=== PATIENT | male | born 1970 | race Caucasian/White ===

== ENCOUNTER 2022-04-05 09:05 | Outpatient (CLI) | payer BC, SELFPAY | END 2022-04-05 09:06 | disposition home or self-care (01) | LOC: WOUND 09:06 | PROVIDERS: Visit Provider Nurse Practitioner Family | DX: E11.621 Type 2 diabetes mellitus with foot ulcer (principal); L97.523 Non-pressure chronic ulcer of other part of left foot with necrosis of muscle | CPT/HCPCS: 99212 ==

== ENCOUNTER 2022-04-26 14:27 | Outpatient (CLI) | payer BC, SELFPAY | END 2022-04-26 14:28 | disposition home or self-care (01) | LOC: WOUND 14:27 | PROVIDERS: Visit Provider Nurse Practitioner Family | DX: E11.621 Type 2 diabetes mellitus with foot ulcer (principal); L97.522 Non-pressure chronic ulcer of other part of left foot with fat layer exposed; L60.0 Ingrowing nail; Z79.899 Other long term (current) drug therapy; Z79.84 Long term (current) use of oral hypoglycemic drugs | CPT/HCPCS: 11042 ==

== ENCOUNTER 2022-05-03 11:07 | Outpatient (CLI) | payer BC, SELFPAY | END 2022-05-03 11:08 | disposition home or self-care (01) | LOC: WOUND 11:07 | PROVIDERS: Visit Provider Nurse Practitioner Family | DX: E11.621 Type 2 diabetes mellitus with foot ulcer (principal); L97.522 Non-pressure chronic ulcer of other part of left foot with fat layer exposed; Z79.84 Long term (current) use of oral hypoglycemic drugs; Z79.899 Other long term (current) drug therapy | CPT/HCPCS: 11042 ==

== ENCOUNTER 2022-05-10 12:44 | Outpatient (CLI) | payer BC, SELFPAY | END 2022-05-10 12:45 | disposition home or self-care (01) | LOC: WOUND 12:44 | PROVIDERS: Visit Provider Nurse Practitioner Family | DX: E11.621 Type 2 diabetes mellitus with foot ulcer (principal); L97.522 Non-pressure chronic ulcer of other part of left foot with fat layer exposed; Z79.84 Long term (current) use of oral hypoglycemic drugs; Z79.899 Other long term (current) drug therapy | CPT/HCPCS: 11042 ==

== ENCOUNTER 2022-05-17 10:58 | Outpatient (CLI) | payer BC, SELFPAY | END 2022-05-17 10:59 | disposition home or self-care (01) | LOC: WOUND 10:58 | PROVIDERS: Visit Provider Nurse Practitioner Family | DX: E11.621 Type 2 diabetes mellitus with foot ulcer (principal); L97.522 Non-pressure chronic ulcer of other part of left foot with fat layer exposed | CPT/HCPCS: 11042 ==

== ENCOUNTER 2022-05-24 08:01 | Outpatient (CLI) | payer BC, SELFPAY | END 2022-05-24 08:02 | disposition home or self-care (01) | LOC: WOUND 08:01 | PROVIDERS: Visit Provider Nurse Practitioner Family | DX: E11.621 Type 2 diabetes mellitus with foot ulcer (principal); L97.522 Non-pressure chronic ulcer of other part of left foot with fat layer exposed; Z79.84 Long term (current) use of oral hypoglycemic drugs; Z79.899 Other long term (current) drug therapy | CPT/HCPCS: 11042 ==

== ENCOUNTER 2022-05-31 09:29 | Outpatient (CLI) | payer BC, SELFPAY | END 2022-05-31 09:30 | disposition home or self-care (01) | LOC: WOUND 09:30 | PROVIDERS: Visit Provider Nurse Practitioner Family | DX: E11.621 Type 2 diabetes mellitus with foot ulcer (principal); L97.522 Non-pressure chronic ulcer of other part of left foot with fat layer exposed; Z79.84 Long term (current) use of oral hypoglycemic drugs; Z79.899 Other long term (current) drug therapy | CPT/HCPCS: 97597 ==

== ENCOUNTER 2022-06-07 08:50 | Outpatient (CLI) | payer BC, SELFPAY | END 2022-06-07 08:51 | disposition home or self-care (01) | LOC: WOUND 08-03 11:03 | PROVIDERS: Visit Provider Nurse Practitioner Family | DX: E11.621 Type 2 diabetes mellitus with foot ulcer (principal); L97.522 Non-pressure chronic ulcer of other part of left foot with fat layer exposed; Z79.84 Long term (current) use of oral hypoglycemic drugs; Z79.899 Other long term (current) drug therapy | CPT/HCPCS: 29445 ==

== ENCOUNTER 2022-06-14 11:02 | Outpatient (CLI) | payer BC, SELFPAY | END 2022-06-14 11:03 | disposition home or self-care (01) | LOC: WOUND 11:02 | PROVIDERS: Visit Provider Nurse Practitioner Family | DX: E11.621 Type 2 diabetes mellitus with foot ulcer (principal); L97.522 Non-pressure chronic ulcer of other part of left foot with fat layer exposed; Z79.84 Long term (current) use of oral hypoglycemic drugs; Z79.899 Other long term (current) drug therapy | CPT/HCPCS: 99213 ==

== ENCOUNTER 2022-06-28 08:01 | Outpatient (CLI) | payer BC, SELFPAY | END 2022-06-28 08:02 | disposition home or self-care (01) | LOC: WOUND 08:01 | PROVIDERS: Visit Provider Nurse Practitioner Family | DX: E11.621 Type 2 diabetes mellitus with foot ulcer (principal); L97.522 Non-pressure chronic ulcer of other part of left foot with fat layer exposed; Z79.899 Other long term (current) drug therapy; Z79.84 Long term (current) use of oral hypoglycemic drugs | CPT/HCPCS: 97597 ==

== ENCOUNTER 2022-07-12 08:05 | Outpatient (CLI) | payer BC, SELFPAY | END 2022-07-12 08:06 | disposition home or self-care (01) | PROVIDERS: Visit Provider Nurse Practitioner Family | DX: E11.621 Type 2 diabetes mellitus with foot ulcer (principal); L97.522 Non-pressure chronic ulcer of other part of left foot with fat layer exposed; Z79.84 Long term (current) use of oral hypoglycemic drugs; Z79.85 Long-term (current) use of injectable non-insulin antidiabetic drugs | CPT/HCPCS: 97597 ==

== ENCOUNTER 2022-07-26 08:03 | Outpatient (CLI) | payer BC, SELFPAY | END 2022-07-26 08:04 | disposition home or self-care (01) | LOC: WOUND 08:05 | PROVIDERS: PCP Physician Assistant; Visit Provider Physician Assistant Surgical | DX: E11.621 Type 2 diabetes mellitus with foot ulcer (principal); L97.522 Non-pressure chronic ulcer of other part of left foot with fat layer exposed; Z79.84 Long term (current) use of oral hypoglycemic drugs; Z79.85 Long-term (current) use of injectable non-insulin antidiabetic drugs | CPT/HCPCS: 97597 ==

== ENCOUNTER 2022-08-09 08:03 | Outpatient (CLI) | payer BC, SELFPAY ==
--- NOTE | 2022-08-09 08:45 | CRLHL7_ITS ---
For Patients: As a result of the Cures Act, medical imaging exams and procedure reports are released immediately into your electronic medical record. You may view this report before your referring provider. If you have questions, please contact your health care provider. 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 No cortical destruction. No periostitis or fracture. Degenerative changes. Impression: No osteomyelitis. Dictated by Ulises Mcclure MD @ 08/09/2022 9:21:21 AM (Electronically Signed)
== END 2022-08-09 08:04 | disposition home or self-care (01) ==
PROVIDERS: PCP Physician Assistant; Visit Provider Nurse Practitioner Family
DX: E11.621 Type 2 diabetes mellitus with foot ulcer (principal); L97.522 Non-pressure chronic ulcer of other part of left foot with fat layer exposed; Z79.85 Long-term (current) use of injectable non-insulin antidiabetic drugs; Z79.84 Long term (current) use of oral hypoglycemic drugs
CPT/HCPCS: 11042; 73660

== ENCOUNTER 2022-08-24 13:54 | Outpatient (CLI) | payer BC, SELFPAY | END 2022-08-24 13:55 | disposition home or self-care (01) | LOC: WOUND 13:54 | PROVIDERS: PCP Physician Assistant; Visit Provider Nurse Practitioner Family | DX: E11.621 Type 2 diabetes mellitus with foot ulcer (principal); L97.822 Non-pressure chronic ulcer of other part of left lower leg with fat layer exposed; Z79.84 Long term (current) use of oral hypoglycemic drugs; Z79.85 Long-term (current) use of injectable non-insulin antidiabetic drugs | CPT/HCPCS: 97597 ==

== ENCOUNTER 2022-09-06 08:03 | Outpatient (CLI) | payer BC, SELFPAY | END 2022-09-06 08:04 | disposition home or self-care (01) | PROVIDERS: PCP Physician Assistant; Visit Provider Nurse Practitioner Family | DX: E11.621 Type 2 diabetes mellitus with foot ulcer (principal); L97.522 Non-pressure chronic ulcer of other part of left foot with fat layer exposed; Z79.84 Long term (current) use of oral hypoglycemic drugs; Z79.85 Long-term (current) use of injectable non-insulin antidiabetic drugs | CPT/HCPCS: 99212 ==

== ENCOUNTER 2022-12-20 08:03 | Outpatient (CLI) | payer BC, SELFPAY | END 2022-12-20 08:04 | disposition home or self-care (01) | LOC: WOUND 08:03 | PROVIDERS: PCP Physician Assistant; Visit Provider Nurse Practitioner Family | DX: E11.621 Type 2 diabetes mellitus with foot ulcer (principal); L97.522 Non-pressure chronic ulcer of other part of left foot with fat layer exposed; Z79.84 Long term (current) use of oral hypoglycemic drugs; Z79.85 Long-term (current) use of injectable non-insulin antidiabetic drugs | CPT/HCPCS: 11042; 99212 ==

== ENCOUNTER 2022-12-27 09:01 | Outpatient (CLI) | payer BC, SELFPAY | END 2022-12-27 09:02 | disposition home or self-care (01) | LOC: WOUND 09:01 | PROVIDERS: PCP Physician Assistant; Visit Provider Nurse Practitioner Family | DX: E11.621 Type 2 diabetes mellitus with foot ulcer (principal); L97.522 Non-pressure chronic ulcer of other part of left foot with fat layer exposed; Z79.84 Long term (current) use of oral hypoglycemic drugs; Z79.85 Long-term (current) use of injectable non-insulin antidiabetic drugs | CPT/HCPCS: 99212 ==

== ENCOUNTER 2024-12-11 08:39 | Outpatient (CLI) | payer BC, SELFPAY | END 2024-12-11 08:40 | disposition home or self-care (01) | LOC: WOUND 08:39 | PROVIDERS: PCP Physician Assistant; Visit Provider Nurse Practitioner Family | DX: E11.621 Type 2 diabetes mellitus with foot ulcer (principal); L97.522 Non-pressure chronic ulcer of other part of left foot with fat layer exposed; Z79.84 Long term (current) use of oral hypoglycemic drugs; Z79.85 Long-term (current) use of injectable non-insulin antidiabetic drugs | CPT/HCPCS: 11042; G0463 ==

== ENCOUNTER 2024-12-18 08:28 | Outpatient (CLI) | payer BC, SELFPAY | END 2024-12-18 08:29 | disposition home or self-care (01) | LOC: WOUND 08:28 | PROVIDERS: PCP Physician Assistant; Visit Provider Nurse Practitioner Family | DX: E11.621 Type 2 diabetes mellitus with foot ulcer (principal); L97.522 Non-pressure chronic ulcer of other part of left foot with fat layer exposed; Z79.84 Long term (current) use of oral hypoglycemic drugs; Z79.85 Long-term (current) use of injectable non-insulin antidiabetic drugs | CPT/HCPCS: 11042 ==

== ENCOUNTER 2024-12-25 08:09 | Outpatient (CLI) | payer BC, SELFPAY | END 2024-12-25 08:10 | disposition home or self-care (01) | LOC: WOUND 08:09 | PROVIDERS: PCP Physician Assistant; Visit Provider Nurse Practitioner Family | DX: E11.621 Type 2 diabetes mellitus with foot ulcer (principal); L97.522 Non-pressure chronic ulcer of other part of left foot with fat layer exposed; Z79.84 Long term (current) use of oral hypoglycemic drugs | CPT/HCPCS: 11042 ==

== ENCOUNTER 2025-01-01 07:59 | Outpatient (CLI) | payer BC, SELFPAY | END 2025-01-01 08:00 | disposition home or self-care (01) | LOC: WOUND 07:59 | PROVIDERS: PCP Physician Assistant; Visit Provider Family Medicine | DX: E11.621 Type 2 diabetes mellitus with foot ulcer (principal); L97.522 Non-pressure chronic ulcer of other part of left foot with fat layer exposed; Z79.84 Long term (current) use of oral hypoglycemic drugs | CPT/HCPCS: 11042 ==

== ENCOUNTER 2025-01-08 08:01 | Outpatient (CLI) | payer BC, SELFPAY | END 2025-01-08 08:02 | disposition home or self-care (01) | LOC: WOUND 08:02 | PROVIDERS: PCP Physician Assistant; Visit Provider Nurse Practitioner Family | DX: E11.621 Type 2 diabetes mellitus with foot ulcer (principal); L97.522 Non-pressure chronic ulcer of other part of left foot with fat layer exposed; Z79.84 Long term (current) use of oral hypoglycemic drugs; Z79.85 Long-term (current) use of injectable non-insulin antidiabetic drugs | CPT/HCPCS: 97597 ==

== ENCOUNTER 2025-01-15 07:59 | Outpatient (CLI) | payer BC, SELFPAY | END 2025-01-15 08:00 | disposition home or self-care (01) | LOC: WOUND 07:59 | PROVIDERS: PCP Physician Assistant; Visit Provider Nurse Practitioner Family | DX: E11.621 Type 2 diabetes mellitus with foot ulcer (principal); L97.522 Non-pressure chronic ulcer of other part of left foot with fat layer exposed; Z79.84 Long term (current) use of oral hypoglycemic drugs | CPT/HCPCS: 97597 ==

== ENCOUNTER 2025-01-22 08:03 | Outpatient (CLI) | payer BC, SELFPAY | END 2025-01-22 08:04 | disposition home or self-care (01) | LOC: WOUND 08:04 | PROVIDERS: PCP Physician Assistant; Visit Provider Nurse Practitioner Family | DX: E11.621 Type 2 diabetes mellitus with foot ulcer (principal); L97.522 Non-pressure chronic ulcer of other part of left foot with fat layer exposed; Z79.84 Long term (current) use of oral hypoglycemic drugs | CPT/HCPCS: 11042 ==

== ENCOUNTER 2025-01-29 08:20 | Outpatient (CLI) | payer BC, SELFPAY | END 2025-01-29 08:21 | disposition home or self-care (01) | LOC: WOUND 08:20 | PROVIDERS: PCP Physician Assistant; Visit Provider Physician Assistant | DX: E11.621 Type 2 diabetes mellitus with foot ulcer (principal); L97.522 Non-pressure chronic ulcer of other part of left foot with fat layer exposed | CPT/HCPCS: 97597 ==

== ENCOUNTER 2025-02-05 08:03 | Outpatient (CLI) | payer BC, SELFPAY | END 2025-02-05 08:04 | disposition home or self-care (01) | LOC: WOUND 08:03 | PROVIDERS: PCP Physician Assistant; Visit Provider Nurse Practitioner Family | DX: E11.621 Type 2 diabetes mellitus with foot ulcer (principal); L97.528 Non-pressure chronic ulcer of other part of left foot with other specified severity | CPT/HCPCS: 11042 ==

== ENCOUNTER 2025-02-10 10:00 | Outpatient (CLI) | payer BC, SELFPAY | END 2025-02-10 10:01 | disposition home or self-care (01) | LOC: WOUND 10:00 | PROVIDERS: PCP Physician Assistant; Visit Provider Nurse Practitioner Family | DX: E11.621 Type 2 diabetes mellitus with foot ulcer (principal); L97.528 Non-pressure chronic ulcer of other part of left foot with other specified severity; Z79.84 Long term (current) use of oral hypoglycemic drugs; Z79.85 Long-term (current) use of injectable non-insulin antidiabetic drugs | CPT/HCPCS: 29445 ==

== ENCOUNTER 2025-02-12 08:01 | Outpatient (CLI) | payer BC, SELFPAY | END 2025-02-12 08:02 | disposition home or self-care (01) | LOC: WOUND 08:01 | PROVIDERS: PCP Physician Assistant; Visit Provider Nurse Practitioner Family | DX: E11.621 Type 2 diabetes mellitus with foot ulcer (principal); L97.528 Non-pressure chronic ulcer of other part of left foot with other specified severity; Z79.84 Long term (current) use of oral hypoglycemic drugs; Z79.85 Long-term (current) use of injectable non-insulin antidiabetic drugs | CPT/HCPCS: 11042 ==

== ENCOUNTER 2025-02-19 08:03 | Outpatient (CLI) | payer BC, SELFPAY | END 2025-02-19 08:04 | disposition home or self-care (01) | LOC: WOUND 08:03 | PROVIDERS: PCP Physician Assistant; Visit Provider Nurse Practitioner Family | DX: E11.621 Type 2 diabetes mellitus with foot ulcer (principal); L97.528 Non-pressure chronic ulcer of other part of left foot with other specified severity; Z79.84 Long term (current) use of oral hypoglycemic drugs; Z79.85 Long-term (current) use of injectable non-insulin antidiabetic drugs | CPT/HCPCS: 11042 ==

== ENCOUNTER 2025-02-26 08:07 | Outpatient (CLI) | payer BC, SELFPAY | END 2025-02-26 08:08 | disposition home or self-care (01) | LOC: WOUND 08:07 | PROVIDERS: PCP Physician Assistant; Visit Provider Physician Assistant | DX: E11.621 Type 2 diabetes mellitus with foot ulcer (principal); L97.528 Non-pressure chronic ulcer of other part of left foot with other specified severity; Z79.84 Long term (current) use of oral hypoglycemic drugs | CPT/HCPCS: 29445; 97597 ==

== ENCOUNTER 2025-03-05 09:21 | Outpatient (CLI) | payer BC, SELFPAY | END 2025-03-05 09:22 | disposition home or self-care (01) | LOC: WOUND 09:21 | PROVIDERS: PCP Physician Assistant; Visit Provider Nurse Practitioner Family | DX: E11.621 Type 2 diabetes mellitus with foot ulcer (principal); L97.522 Non-pressure chronic ulcer of other part of left foot with fat layer exposed; Z79.84 Long term (current) use of oral hypoglycemic drugs | CPT/HCPCS: 97597 ==

== ENCOUNTER 2025-03-12 07:59 | Outpatient (CLI) | payer BC, SELFPAY | END 2025-03-12 08:00 | disposition home or self-care (01) | LOC: WOUND 07:59 | PROVIDERS: PCP Physician Assistant; Visit Provider Nurse Practitioner Family | DX: E11.621 Type 2 diabetes mellitus with foot ulcer (principal); L97.528 Non-pressure chronic ulcer of other part of left foot with other specified severity; Z79.84 Long term (current) use of oral hypoglycemic drugs | CPT/HCPCS: 11042 ==

== ENCOUNTER 2025-03-19 09:19 | Outpatient (CLI) | payer BC, SELFPAY | END 2025-03-19 09:20 | disposition home or self-care (01) | LOC: WOUND 09:20 | PROVIDERS: PCP Physician Assistant; Visit Provider Nurse Practitioner Family | DX: E11.621 Type 2 diabetes mellitus with foot ulcer (principal); L97.522 Non-pressure chronic ulcer of other part of left foot with fat layer exposed; Z79.84 Long term (current) use of oral hypoglycemic drugs | CPT/HCPCS: 11042 ==

== ENCOUNTER 2025-03-25 08:25 | Outpatient (CLI) | payer BC, SELFPAY | END 2025-03-25 08:26 | disposition home or self-care (01) | LOC: WOUND 08:25 | PROVIDERS: PCP Physician Assistant; Visit Provider Nurse Practitioner Family | DX: E11.621 Type 2 diabetes mellitus with foot ulcer (principal); L97.528 Non-pressure chronic ulcer of other part of left foot with other specified severity; Z79.84 Long term (current) use of oral hypoglycemic drugs | CPT/HCPCS: 97597 ==

== ENCOUNTER 2025-04-02 08:01 | Outpatient (CLI) | payer BC, SELFPAY | END 2025-04-02 08:02 | disposition home or self-care (01) | LOC: WOUND 08:01 | PROVIDERS: PCP Physician Assistant; Visit Provider Nurse Practitioner Family | DX: E11.621 Type 2 diabetes mellitus with foot ulcer (principal); L97.528 Non-pressure chronic ulcer of other part of left foot with other specified severity; Z79.84 Long term (current) use of oral hypoglycemic drugs | CPT/HCPCS: 29445 ==

== ENCOUNTER 2025-04-08 08:35 | Outpatient (CLI) | payer BC, SELFPAY | END 2025-04-08 08:36 | disposition home or self-care (01) | LOC: WOUND 08:35 | PROVIDERS: PCP Physician Assistant; Visit Provider Physician Assistant | DX: E11.621 Type 2 diabetes mellitus with foot ulcer (principal); L97.528 Non-pressure chronic ulcer of other part of left foot with other specified severity | CPT/HCPCS: 29445; G0463 ==

== ENCOUNTER 2025-04-16 08:04 | Outpatient (CLI) | payer BC, SELFPAY | END 2025-04-16 08:05 | disposition home or self-care (01) | LOC: WOUND 08:05 | PROVIDERS: PCP Physician Assistant; Visit Provider Nurse Practitioner Family | DX: E11.9 Type 2 diabetes mellitus without complications (principal); Z86.31 Personal history of diabetic foot ulcer; Z79.84 Long term (current) use of oral hypoglycemic drugs | CPT/HCPCS: G0463 ==

== ENCOUNTER 2025-05-10 10:34 | Outpatient (CLI) | payer BC, SELFPAY | END 2025-05-10 10:35 | disposition home or self-care (01) | LOC: WOUND 10:34 | PROVIDERS: PCP Physician Assistant; Visit Provider Family Medicine | DX: E11.621 Type 2 diabetes mellitus with foot ulcer (principal); L97.522 Non-pressure chronic ulcer of other part of left foot with fat layer exposed; L03.032 Cellulitis of left toe; Z79.84 Long term (current) use of oral hypoglycemic drugs | CPT/HCPCS: 11042; 87070; 87186; G0463 ==

== ENCOUNTER 2025-05-14 15:07 | Outpatient (CLI) | payer BC, SELFPAY | END 2025-05-14 15:08 | disposition home or self-care (01) | PROVIDERS: PCP Physician Assistant; Visit Provider Nurse Practitioner Family | DX: E11.621 Type 2 diabetes mellitus with foot ulcer (principal); L97.522 Non-pressure chronic ulcer of other part of left foot with fat layer exposed; L03.032 Cellulitis of left toe; B95.61 Methicillin susceptible Staphylococcus aureus infection as the cause of diseases classified elsewhere; B95.1 Streptococcus, group B, as the cause of diseases classified elsewhere; Z79.84 Long term (current) use of oral hypoglycemic drugs | CPT/HCPCS: G0463 ==

== ENCOUNTER 2025-05-14 16:34 | Outpatient (CLI) | payer BC, SELFPAY ==
--- NOTE | 2025-05-14 16:30 | CRLHL7_ITS ---
For Patients: As a result of the Cures Act, medical imaging exams and procedure reports are released immediately into your electronic medical record. You may view this report before your referring provider. If you have questions, please contact your health care provider. Indication: FOOT WOUND Technique: Left foot 3 views Comparison: 08/09/2022 Findings: Small calcaneal spurs and mild chronic plantar fasciitis. No fracture or destructive osseous lesion. Mild spurring at the 1st MTP joint. Impression: No evidence of osteomyelitis. No soft tissue gas. Dictated by Ulises Mcclure MD @ 05/16/2025 7:53:12 PM (Electronically Signed)
== END 2025-05-14 16:35 | disposition home or self-care (01) ==
LOC: RAD 16:34
PROVIDERS: PCP Physician Assistant; Visit Provider Nurse Practitioner Family
DX: L97.522 Non-pressure chronic ulcer of other part of left foot with fat layer exposed (principal)
CPT/HCPCS: 73630

== ENCOUNTER 2025-05-21 15:31 | Outpatient (CLI) | payer BC, SELFPAY | END 2025-05-21 15:32 | disposition home or self-care (01) | LOC: WOUND 15:31 | PROVIDERS: PCP Physician Assistant; Visit Provider Nurse Practitioner Family | DX: E11.621 Type 2 diabetes mellitus with foot ulcer (principal); L97.522 Non-pressure chronic ulcer of other part of left foot with fat layer exposed; Z79.84 Long term (current) use of oral hypoglycemic drugs | CPT/HCPCS: 97597 ==

== ENCOUNTER 2025-06-04 13:31 | Outpatient (CLI) | payer BC, SELFPAY | END 2025-06-04 13:32 | disposition home or self-care (01) | LOC: WOUND 13:31 | PROVIDERS: PCP Physician Assistant; Visit Provider Nurse Practitioner Family | DX: E11.621 Type 2 diabetes mellitus with foot ulcer (principal); L97.522 Non-pressure chronic ulcer of other part of left foot with fat layer exposed; Z79.84 Long term (current) use of oral hypoglycemic drugs; Z79.85 Long-term (current) use of injectable non-insulin antidiabetic drugs | CPT/HCPCS: 97597 ==